=== PATIENT | female | born 1995 | race Caucasian/White ===

== ENCOUNTER 2016-07-03 07:02 | Day surgery (SDC) | payer OTHER ==
[2016-07-03] VITALS (13 sets, daily range): BP systolic 103–134; BP diastolic 55–84; PULSE 96–119; RESP 8–27; O2SAT 95–99
[~2016-07-03] VITALS: Ht 157.5 cm; Wt 64.0 kg
--- NOTE | 2016-07-03 06:44 | PCM.HPANE ---
Patient Data Surgeon Admitting Provider: Attending Provider:Jagjit Gonzalez DPM Primary Care Physician:Kinza Soriano DO Other Provider:Danna Castañeda Anesthesia Reason for Visit Left Foot Tarsal Coalition Ht/WT & BMI Height (Feet): 5 Height (Inches): 2 Weight (Kilograms): 64.86 Body Mass Index 26.00 Allergies Coded Allergies: Cephalosporins (Verified Allergy, Intermediate, Rash, 06/25/15) Uncoded Allergies: SHELLFISH/SEAFOOD (Allergy, Unknown, 06/30/16) pt tolerated iodine skin prep for C section and spinal with no problems Past Anesthesia History Anesthesia History: Denies:: Abnormal Airway, Anesthesia Reactions (nauseated after gallbladder surgery), Difficult Intubation, Fam Anesthesia Reaction Diabetes History Hx Diabetes?: No MRSA MRSA: No Medications Hypertension Medication: No Home Meds Incl Beta Gustabo: No Reported Medications [yulane] No Conflict Check Transderm Weekly 07/03/16 Multivitamin (Multi Vitamin Daily)1 Each Tablet1 Each PO DAILY 30 Days Ref 0 07/03/16 [vit d] No Conflict Check2,000 Unit PO DAILY 07/03/16 Ferrous Sulfate, Dried (Iron)159 Mg Tablet.er159 Mg PO 07/03/16 [smz/tmp] No Conflict Check Po Bid 07/03/16 Quetiapine Fumarate 50 Mg Bvnthg82 Mg PO HS Ref 0 07/03/16 Epinephrine (Epipen 2-Jose Rafael)0.3 Mg/0.3 Ml Auto.injct0.3 Mg IJ PRN For Anaphyllaxis 06/30/16 Albuterol Sulfate (Proventil HFA Inhaler)6.7 Gm Hfa.aer.ad2 Puff INH Q4 PRN For Shortness of Breath #1 INHALER Ref 0 06/30/16 Sumatriptan (Imitrex)100 Mg Yewwdk95 Mg PO Q2H PRN migraines MR q2h/NTE 200mg/24hr 06/30/16 Magnesium Oxide 400 Mg Hhssnh968 Mg PO DAILY 06/30/16 Riboflavin 400 Mg Chihnj864 Mg PO DAILY 06/30/16 Topiramate 100 Mg Phahwd489 Mg PO DAILY Ref 0 06/30/16 Buspirone 7.5 Mg Tablet7.5 Mg PO DAILY Ref 0 06/30/16 Prazosin 1 Mg Capsule1 Mg PO HS 06/30/16 Quetiapine Fumarate (Seroquel)50 Mg Wijzoo60 Mg PO HS Ref 0 06/30/16 Lamotrigine (Lamictal)100 Mg Omufjw929 Mg PO BID #30 TABLET Ref 0 06/30/16 Fexofenadine (Arelis Allergy)60 Mg Nqlfjs33 Mg PO BID 06/30/16 Discontinued Reported Medications Lamotrigine (Lamictal)25 Mg Rrkjlp85 Mg PO DAILY #30 TABLET Ref 0 06/30/16 Norgestimate-Ethinyl Estradiol 1 Each Tablet1 Each PO DAILY 06/30/16 History HEENT History: Denies:: Abnormal Airway Cataracts Difficult Intubation Dysphagia Glaucoma Hearing Problem Sinus Problem TMJ Hx of Heart Problems?: No Cardiovascular History: Positive for:: Heart Murmur (as child, still audible when dehydrated) Denies:: AICD Chest Pain Coronary Artery Disease Edema Hypertension Pacemaker Peripheral Vascular Rheumatic Fever Thrombophlebitis Hx of Respiratory Problem?: Yes Respiratory History: Positive for:: Asthma Use of Inhalers / NEBS Denies:: COPD Emphysema Oxygen Administration Pneumonia Tuberculosis Use of C-PAP Machine Hx Neurologic Problems?: Yes Neurological History: Positive for:: Headaches (takes sumatriptan) Denies:: CVA Multiple Sclerosis Parkinson's Disease Seizures TIA Hx of GI Problems?: Yes Gastrointestinal History: Positive for:: Gall Bladder Disease (removed ) Denies:: Cirrhosis Gastroesphageal Reflux Gastrointestinal Bleeding Heartburn Hepatitis Hiatal Hernia Liver Disease Rectal Bleeding Hx of Problems?: No Genitourinary History: Denies:: Kidney Stones Urinary Tract Infection (sx of UTI, taking OTC meds ) Female Hx: Denies:: Currently Problems with Breasts? Skin History: Denies:: History Skin Disorders? Pressure Ulcers Hx Musculoskeletal Problems?: Yes Musculoskeletal History: Positive for:: Musculoskeletal Trauma (left foot current admission problem) Denies:: Back Injury Fibromyalgia Joint Replacement Myasthenia Gravis Osteoarthritis Rheumatoid Arthritis Hx of Psycho/Social Problems?: Yes Psycho Social History: Positive for:: Anxiety Bipolar Disorder Hx Surgeries?: Yes (gallbladder, C section) Hx Any Other Health Problems?: Yes Other History: Denies:: Cancer Thyroid Disease History Blood Transfusions: Positive for:: Accept Blood Products? Denies:: Blood Transfusions Hx Diabetes: No Hx Alcohol Use: YesAlcoholic Drinks Per Day: holidays onlyHx Substance Use: Yes (marijuana, inhalant )Have You Smoked inLast 12 mo: Yes (quit last week) Stop/Bang S-Snoring: Do You Snore Loudly: No T-Tired: feel tired, fatigued: No O-Obsered: Observed not breath: No P-Blood Pressure: treated: No B- Body Mass Index > 35 kg/m2: No A- Age over 50: No N- Neck Large Circumference: No G- Gender Male: No LANNY Total Score: 0 LANYN Risk Assessment: Low Risk, <3 Yes Risk Assessment Category Category 1A: Patient has history of documented sleep apnea, and HAS NOT received any narcotic, sedative or anesthesia administration during this stay. Category 1B: Patient has history of documented sleep apnea, and HAS received any narcotic , sedative or anesthesia administration during this stay Category 2: Patient has SUSPECTED Obstructive Sleep Apnea, and HAS received any narcotic , sedative or anesthesia administration during this stay. Category 3: Patient has SUSPECTED Obstructive Sleep Apnea and HAS NOT received narcotic, sedative or anesthesia administration during this stay. Category 4: Outpatient in Procedural Areas with known sleep apnea or who screen positive for High Risk via the STOP/BANG questionnaire. Exam Exam General Appearance: Alert, Oriented X3, Cooperative, No Acute Distress HEENT/AIRWAY: MP 2 Lungs: Clear to Auscultation, Normal Air Movement Heart: Exam Unremarkable, Regular Rate/Rhythm, No Murmurs/Rubs/Gallops Plan Impression Patient chart reviewed, patient interviewed and anesthestic plan with risks, benefits, and alternatives discussed, and informed consent obtained. ASA Physical Status: ASA2 Mod Systemic Disease Anesthetic Plan: GA Bene/Risks/Altern/Consents: Yes HP Complete Prior to Induction: Yes Des Chavez MD Jul 03, 2016 06:44
[~2016-07-03 07:02] MED LIST: ALBU6.7H INH; BUSP7.5T5 PO; Clindamycin Inj 600 MG in IV Premix 1 EACH IV ONE; EPIN0.3P2 IJ; FEXO-15 PO; IMI100 PO; LAMO100T PO; LAMO25TA2 PO; MAGN400T4 PO; NORG1TAB70 PO; PRAZ1CAP2 PO; QUET50TA PO; RIBO400T PO; TOPI-31 PO
[2016-07-03] MEDS ORDERED: fentaNYL-PF 50 mCg/mL 2 mL Inj ONE (07:03)
[2016-07-03] MEDS ORDERED: Ondansetron 2 mg/mL 2 mL Inj ONE (07:03)
[2016-07-03] MEDS ORDERED: Propofol 10,000 mCg/mL 20 mL Inj ONE (07:03)
[2016-07-03] MEDS ORDERED: Dexamethasone 4 mg/mL Inj ONE (07:03)
[2016-07-03] MEDS: Lactated Ringer's 1,000 ML IV SCH ×2 (07:05→09:34)
[2016-07-03] MEDS ORDERED: QUET50TA55 PO (07:38)
[2016-07-03] MEDS ORDERED: vit d PO (07:38)
[2016-07-03] MEDS ORDERED: MULT-1018 PO (07:38)
[2016-07-03] MEDS ORDERED: [UNRECOGNIZED DRUG - OTHER] TRANSDERM (07:38)
[2016-07-03] MEDS ORDERED: smz/tmp PO (07:38)
[2016-07-03] MEDS ORDERED: FERR159T2 PO (07:38)
[2016-07-03] MEDS ORDERED: Atropine 0.4 mg/mL Inj IVPUSH PRN (09:25)
[2016-07-03] MEDS ORDERED: MetoCLOpramide 5 mg/mL 2 mL Inj IVPUSH PRN (09:25)
[2016-07-03] MEDS ORDERED: Lactated Ringer's 500 ML IV PRN (09:25)
[2016-07-03] MEDS ORDERED: Ondansetron 2 mg/mL 2 mL Inj IVPUSH PRN (09:25)
[2016-07-03] MEDS ORDERED: fentaNYL-PF 50 mCg/mL 2 mL Inj IVPUSH PRN (09:25)
[2016-07-03] MEDS ORDERED: Labetalol 5 mg/mL 4 mL Inj IV PRN (09:25)
[2016-07-03] MEDS ORDERED: hydrALAZINE 20 mg/mL Inj IVPUSH PRN (09:25)
[2016-07-03] MEDS ORDERED: Phenylephrine 10,000 mCg/mL Inj IVPUSH PRN (09:25)
[2016-07-03] MEDS ORDERED: Lactated Ringer's 1,000 ML IV SCH (09:25)
[2016-07-03] MEDS ORDERED: Dexamethasone 4 mg/mL Inj IVPUSH PRN (09:25)
[2016-07-03] MEDS ORDERED: EPHEDrine Sulfate 50 mg/mL Inj IVPUSH PRN (09:25)
[2016-07-03] MEDS ORDERED: Bupivacaine-MPF 0.5% W/EPI 30 mL Inj INFILTRATE ONE (09:34)
[2016-07-03] MEDS ORDERED: HYDROcodone-APAP 5-325 mg Tablet PO PRN (10:55)
--- NOTE | 2016-07-03 11:00 | PCM.PODPO ---
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 Patient was transported into the operating room and placed on the operating room table in the normal supine position. The patient was then prepped and draped in the normal aseptic technique. A preoperative block consisting of 10 mL of half percent Marcaine with epinephrine was given to the left lateral foot and ankle. Attention was first paid to the anterior lateral aspect of the left foot. A curvilinear incision was made in an oblique manner overlying the calcaneocuboid joint and anterior calcaneal process. Once that initially her skin no subcutaneous neurovascular structures including the lateral branch of the dorsal cutaneous nerve was identified and retracted out of the surgical field. Blunt dissection was carried down with the Metzenbaum scissor to identify the extensor digitorum brevis muscle belly and peroneal tendon sheath along its inferior border. Care was taken to retract the tendon sheath without damaging it and the extensor digitorum brevis muscle belly was retracted and reflected distally utilizing a fresh #15 blade. 0 Vicryl suture was utilized to place a retention stitch through the extensor digitorum muscle belly. Sharp dissection with a fresh 15 blade was performed to identify the anterior calcaneal process and calcaneal navicular coalition. Direct visualization of the calcaneal navicular coalition showed near complete osseous union with fibrocartilaginous tissue also noted. An osteotome was utilized to resect a portion of the anterior calcaneal process and calcaneal navicular bar totaling approximately 1.2 cm in length. A rongeur was utilized to further remove fibrocartilaginous and bone from this area to ensure complete resection of the calcaneonavicular coalition. Intraoperative C-arm x-ray was utilized to verify complete resection of the coalition. The hindfoot was placed through range of motion and independent motion was noted of the calcaneus and navicular. This wound was then copiously flushed with large amounts of normal saline. A Elder needle was then utilized to pass the previous Vicryl retention stitch through the plantar surface of the foot interposing the extensor digitorum muscle belly across the previous calcaneonavicular bar site. The suture was then placed through a suture button which was sutured into place on the plantar surface of the foot with minimal tension. The wound was copiously flushed with large amounts of normal saline. Deep subcutaneous closure was performed utilizing number 3. 0 Vicryl and skin closure was performed utilizing number 3. 0 Prolene. No complications occurred during this procedure. Postoperative ankle block was given consisting of an additional 10 mL half percent Marcaine with epinephrine. The patient was placed into a dressing consisting of Adaptic sterile 4 x 4 gauze Kerlix and a mildly compressive Barkley compression dressing. The patient was awoken by anesthesia and transported to the operating room. Grafts, Implants: None Complications There were no periprocedural complications identified. Condition Stable Anesthetic Administered: GA Catheters: None Output, Estimated Blood Loss: 30 Blood Admin during surgery: No Surgical Cast or Splint: Well-padded Short Leg Splint Surgical Specimen Removed: No Specimen sent to Pathology: No Post Operative Plan Ice and elevate left lower extremity Nonweightbearing left lower extremity Keep dressing clean dry and intact Follow-up in office in 1 week Discharge to home when stable Contact office with any questions or concerns Advance diet as tolerated Jagjit Gonzalez DPM Jul 03, 2016 11:00
[2016-07-03] MEDS: HYDROmorphone 1 mg/mL Inj IVPUSH PRN ×2 (11:05→11:25)
[2016-07-03] MEDS ORDERED: Albuterol-Ipratropium 3 mL Inhalation Solution ONE (11:10)
[2016-07-03] MEDS ORDERED: Albuterol-Ipratropium 3 mL Inhalation Solution NEB ONE (11:15)
--- NOTE | 2016-07-03 16:29 | PCM.ANEP2 ---
Post Anesthesia Evaluation ASA/CMS Post Anesthesia VS in Patient's Normal Range?: Yes Resp Stable; Airway Patent?: Yes CV Function & Hydration Stable: Yes Mental Status Recovered?: Yes Pain control Satisfactory?: Yes N/V Control Satisfactory?: Yes Des Chavez MD Jul 03, 2016 16:29
--- NOTE | 2016-07-03 16:29 | PCM.ANEP1 ---
Post Anesthesia Phase 1 PACU Phase 1 Assessment Date of Service: Jul 03, 2016 Vital Signs Vital Signs Date Time Temp Pulse Resp B/P Pulse Ox O2 Delivery O2 Flow Rate FiO2 07/03/16 12:15 36.8 104 14 111/64 98 Room Air 07/03/16 12:00 36.3 114 10 134/84 95 Room Air 07/03/16 11:55 116 16 109/62 99 Room Air 07/03/16 11:44 116 11 115/70 99 Room Air 07/03/16 11:35 36.3 118 11 130/75 98 Room Air 07/03/16 11:30 119 8 117/68 97 Simple Mask 8 07/03/16 11:15 107 20 113/73 97 Room Air 07/03/16 11:10 112 20 110/69 98 Room Air 07/03/16 11:05 103 18 109/57 99 Room Air 07/03/16 11:00 96 16 104/55 96 Room Air 07/03/16 10:55 97 25 103/59 98 Simple Mask 8 07/03/16 10:50 36.2 97 27 107/58 99 Simple Mask 8 Anesthetic Administered: GA Level of Alertness: Awake, talking LIU's with Equal Strength: Yes Pain: No Nausea or Vomiting: No Oxygen Delivery: Simple Mask Lungs: Clear to Auscultation, Normal Air Movement Des Chavez MD Jul 03, 2016 16:28
== END 2016-07-03 23:59 | disposition home or self-care (01) ==
LOC: SAS 07:02
PROVIDERS: ATTEND Podiatrist Foot & Ankle Surgery
DX: Q66.89 Other specified congenital deformities of feet (principal); F17.210 Nicotine dependence, cigarettes, uncomplicated; G43.909 Migraine, unspecified, not intractable, without status migrainosus; F31.60 Bipolar disorder, current episode mixed, unspecified; J45.909 Unspecified asthma, uncomplicated; F41.9 Anxiety disorder, unspecified
CPT/HCPCS: 28116; J1100; J1170; J2250; J2405; J2765; J3010; J7120; J7620